=== PATIENT | female | born 2000 | race Caucasian/White ===

== ENCOUNTER 2024-10-21 22:27 | Emergency (ER) | payer OTHER, SELFPAY ==
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
[2024-10-21 22:31] VITALS: BP 142/77; PULSE 79; RESP 15; TEMP 36.1; O2SAT 100
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
[2024-10-21] MEDS: ACETAMINOPHEN 500 MG TABLET 1000 MG PO (23:55)
[2024-10-21] MEDS: IBUPROFEN 400 MG TABLET 800 MG PO (23:55)
== END 2024-10-22 00:31 | disposition home or self-care (01) ==
PROVIDERS: Emergency Provider Physician Assistant
DX: S61.012A Laceration without foreign body of left thumb without damage to nail, initial encounter (principal); V49.40XA Driver injured in collision with unspecified motor vehicles in traffic accident, initial encounter
CPT/HCPCS: 12001; 70450; 70486; 73140; 99284; A9270